=== PATIENT | female | born 1945 | race Caucasian/White ===

== ENCOUNTER 2020-01-14 12:16 | Emergency (ER) | payer BC, MEDICARE, OTHER ==
[~2020-01-14] VITALS: Ht 167.6 cm; Wt 77.3 kg
[~2020-01-14 12:16] MED LIST: ASPI-1265 PO; ATOR40TA PO; CALC-965 PO; GLUC1CAP78 PO; LOSA25TA96 PO; MULT-1073 PO; NAPR220C15 PO; OMEG500C3 PO; OMEP-84 PO
[2020-01-14] MEDS ORDERED: hydrocort. acetate/pramoxine 10gm bottle RC STA ×2 (14:38→14:52)
[2020-01-14] MEDS ORDERED: pramoxine 1% foam spray 15gm TP STA (15:20)
[2020-01-14 15:25] LABS: BASOPHILS # (AUTO) 0.1 X10'3 (0-0.2); BASOPHILS % (AUTO) 0.6 % (0-1); EOSINOPHILS # (AUTO) 0.1 X10'3 (0-0.9); EOSINOPHILS % (AUTO) 1.3 % (0-6); HEMATOCRIT 37.6 % (35.0-45.0); HEMOGLOBIN 12.5 g/dl (12.0-16.0); LYMPHOCYTES # (AUTO) 1.1 X10'3 (1.1-4.8); LYMPHOCYTES % (AUTO) 13.4 % (21-51); MEAN CORPUSCULAR HEMOGLOBIN 32.1 PG (27.0-31.0); MEAN CORPUSCULAR HGB CONC 33.3 g/dL (33.0-36.5); MEAN CORPUSCULAR VOLUME 96.3 FL (78-98); MEAN PLATELET VOLUME 7.3 FL (7.4-10.4); MONOCYTES # (AUTO) 0.7 X10'3 (0-0.9); MONOCYTES % (AUTO) 8.6 % (2-12); NEUTROPHILS # (AUTO) 6.3 X10'3 (1.8-7.7); NEUTROPHILS % (AUTO) 76.1 % (42-75); PLATELET COUNT 249 X10'3 (140-440); RED CELL DISTRIBUTION WIDTH 13.3 % (11.5-14.5); WHITE BLOOD COUNT 8.2 X10'3 (4.5-11.0)
[2020-01-14 15:37] VITALS: BP 154/89
[2020-01-14 15:40] LABS: ALANINE AMINOTRANSFERASE 23 U/L (12-78); ALBUMIN 3.4 G/DL (3.4-5.0); ALBUMIN/GLOBULIN RATIO 0.9 (1.1-1.5); ALKALINE PHOSPHATASE 87 IU/L (46-116); ANION GAP 9 (8-16); ASPARTATE AMINO TRANSFERASE 24 U/L (10-37); BILIRUBIN,TOTAL 0.6 MG/DL (0.1-1.0); BLOOD UREA NITROGEN 12 MG/DL (7-18); BUN/CREATININE RATIO 16.4 (6.6-38.0); CHLORIDE 105 MMOL/L (99-107); CREATININE 0.73 MG/DL (0.40-0.90); GLUCOSE 96 MG/DL (70-104); POTASSIUM 3.8 MMOL/L (3.5-5.1); SODIUM 143 MMOL/L (135-145); TOTAL CARBON DIOXIDE 29.2 MMOL/L (24-32); eGFR 78 ML/MIN
[2020-01-14] MEDS ORDERED: PROCHC RC (16:15)
== END 2020-01-14 16:22 | disposition home or self-care (01) ==
LOC: ER 12:17
DX: K64.9 Unspecified hemorrhoids (principal); K62.5 Hemorrhage of anus and rectum; Z85.9 Personal history of malignant neoplasm, unspecified; Z88.8 Allergy status to other drugs, medicaments and biological substances; Z79.82 Long term (current) use of aspirin; Z79.899 Other long term (current) drug therapy
CPT/HCPCS: 36415; 80053; 85025; 99283

== ENCOUNTER 2020-08-09 12:14 | Emergency (ER) | payer BC ==
[~2020-08-09] VITALS: Ht 167.6 cm; Wt 77.3 kg
[~2020-08-09 12:14] MED LIST changes: +PROCHC RC
--- NOTE | 2020-08-09 13:17 | NUR ---
TO CT VIA W/C
[2020-08-09 14:06] VITALS: BP 155/83
== END 2020-08-09 14:08 | disposition home or self-care (01) ==
LOC: ER 12:15
DX: S02.2XXA Fracture of nasal bones, initial encounter for closed fracture (principal); Z85.3 Personal history of malignant neoplasm of breast; Z79.82 Long term (current) use of aspirin; Z79.899 Other long term (current) drug therapy; W22.8XXA Striking against or struck by other objects, initial encounter; Y93.89 Activity, other specified; Y92.008 Other place in unspecified non-institutional (private) residence as the place of occurrence of the external cause; Y99.8 Other external cause status; Z88.8 Allergy status to other drugs, medicaments and biological substances; Z88.1 Allergy status to other antibiotic agents
CPT/HCPCS: 70450; 70486; 72125; 99285

== ENCOUNTER 2021-08-29 14:21 | Emergency (ER) | payer BC ==
[~2021-08-29] VITALS: Ht 167.6 cm; Wt 77.0 kg
[2021-08-29 14:30] VITALS: BP 187/97
[2021-08-29] MEDS ORDERED: HYDR-3965 PO (16:06)
== END 2021-08-29 16:12 | disposition home or self-care (01) ==
LOC: ER 14:22
DX: M25.552 Pain in left hip (principal); Z85.3 Personal history of malignant neoplasm of breast; Z98.890 Other specified postprocedural states; Z88.1 Allergy status to other antibiotic agents; Z88.8 Allergy status to other drugs, medicaments and biological substances; Z79.82 Long term (current) use of aspirin; Z79.899 Other long term (current) drug therapy
CPT/HCPCS: 99283

== ENCOUNTER 2021-09-15 04:18 | Emergency (ER) | payer BC ==
[~2021-09-15] VITALS: Ht 167.6 cm; Wt 75.0 kg
[~2021-09-15 04:18] MED LIST changes: +HYDR-3965 PO
[2021-09-15] MEDS ORDERED: HYDROcodone/acetaminophen 10/325mg tab PO ONE (04:50)
[2021-09-15 06:04] VITALS: BP 157/97
== END 2021-09-15 06:52 | disposition home or self-care (01) ==
LOC: ER 04:19
DX: M54.32 Sciatica, left side (principal); R53.1 Weakness; M25.552 Pain in left hip; G89.29 Other chronic pain; Z95.0 Presence of cardiac pacemaker; Z98.890 Other specified postprocedural states; Z85.3 Personal history of malignant neoplasm of breast; Z85.038 Personal history of other malignant neoplasm of large intestine; Z88.1 Allergy status to other antibiotic agents; Z88.8 Allergy status to other drugs, medicaments and biological substances; Z79.82 Long term (current) use of aspirin; Z79.899 Other long term (current) drug therapy
CPT/HCPCS: 99284

== ENCOUNTER 2022-08-17 09:09 | Outpatient (CLI) | payer MEDICARE ==
[2022-08-17] VITALS (17 sets, daily range): BP systolic 135–165; BP diastolic 83–119
[~2022-08-17 09:09] MED LIST changes: -HYDR-3965 PO
== END 2022-08-17 23:59 | disposition home or self-care (01) ==
LOC: CARD DIAG 09:09
PROVIDERS: ATTEND Internal Medicine Interventional Cardiology
DX: R55 Syncope and collapse (principal)
CPT/HCPCS: 93660

== ENCOUNTER 2022-09-06 11:30 | Emergency (ER) | payer MEDICARE ==
[~2022-09-06] VITALS: Ht 167.6 cm; Wt 54.5 kg
[2022-09-06 12:01] LABS: HEMOGLOBIN 13.7 g/dl (12.0-16.0); WHITE BLOOD COUNT 8.2 X10'3 (4.5-11.0)
[2022-09-06 12:03] LABS: BASOPHILS # (AUTO) 0.1 X10'3 (0-0.2); BASOPHILS % (AUTO) 0.6 % (0-1); EOSINOPHILS % (AUTO) 0.3 % (0-6); HEMATOCRIT 40.3 % (35.0-45.0); LYMPHOCYTES # (AUTO) 1.5 X10'3 (1.1-4.8); LYMPHOCYTES % (AUTO) 17.8 % (21-51); MEAN CORPUSCULAR HEMOGLOBIN 32.8 PG (27.0-31.0); MEAN CORPUSCULAR HGB CONC 34.1 g/dL (33.0-36.5); MEAN PLATELET VOLUME 7.5 FL (7.4-10.4); MONOCYTES # (AUTO) 0.5 X10'3 (0-0.9); MONOCYTES % (AUTO) 5.9 % (2-12); NEUTROPHILS # (AUTO) 6.2 X10'3 (1.8-7.7); NEUTROPHILS % (AUTO) 75.4 % (42-75); PLATELET COUNT 210 X10'3 (140-440); RED CELL DISTRIBUTION WIDTH 13.8 % (11.5-14.5)
[2022-09-06 12:04] VITALS: BP 162/91
[2022-09-06 12:18] LABS: ALANINE AMINOTRANSFERASE 38 U/L (12-78); ALBUMIN/GLOBULIN RATIO 1.3 (1.1-1.5); ALKALINE PHOSPHATASE 61 IU/L (46-116); ANION GAP 13 (8-16); ASPARTATE AMINO TRANSFERASE 44 U/L (10-37); BILIRUBIN,TOTAL 0.7 MG/DL (0.1-1.0); BLOOD UREA NITROGEN 11 MG/DL (7-18); BUN/CREATININE RATIO 14.7 (6.6-38.0); CALCIUM 9.3 MG/DL (8.5-10.1); CHLORIDE 104 MMOL/L (99-107); CREATININE 0.75 MG/DL (0.40-0.90); GLUCOSE 87 MG/DL (70-104); MAGNESIUM 1.6 MG/DL (1.5-2.4); POTASSIUM 3.5 MMOL/L (3.5-5.1); SODIUM 142 MMOL/L (135-145); TOTAL CARBON DIOXIDE 25.1 MMOL/L (24-32); TOTAL PROTEIN 7.2 G/DL (6.4-8.2); eGFR 75 ML/MIN
[2022-09-06] MEDS ORDERED: amox tr/potassium clavulanate 500mg/125mg TAB PO ONE (19:25)
[2022-09-06] MEDS ORDERED: acetaminophen 325mg tablet PO ONE (19:25)
[2022-09-06] MEDS ORDERED: AMOX-115 PO (19:28)
== END 2022-09-06 20:26 | disposition home or self-care (01) ==
LOC: ER 11:31
DX: S01.21XA Laceration without foreign body of nose, initial encounter (principal); G89.29 Other chronic pain; F31.9 Bipolar disorder, unspecified; Z88.8 Allergy status to other drugs, medicaments and biological substances; Z88.5 Allergy status to narcotic agent; Z79.899 Other long term (current) drug therapy; Z79.1 Long term (current) use of non-steroidal anti-inflammatories (NSAID); Z79.2 Long term (current) use of antibiotics; W18.39XA Other fall on same level, initial encounter; Y93.89 Activity, other specified; Y92.89 Other specified places as the place of occurrence of the external cause; Y99.8 Other external cause status
CPT/HCPCS: 12011; 36415; 80053; 83735; 83880; 84484; 85025; 93005; 99284

== ENCOUNTER 2023-01-17 16:13 | Emergency (ER) | payer MEDICARE ==
[~2023-01-17] VITALS: Ht 167.6 cm; Wt 71.8 kg
[2023-01-17 17:27] VITALS: BP 142/79
[2023-01-17] MEDS ORDERED: hydrocort. acetate/pramoxine 10gm bottle RC ONE (18:30)
--- NOTE | 2023-01-17 19:08 | NUR ---
PROCTOFOAM APPLIED TO ANUS
--- NOTE | 2023-01-17 20:26 | NUR ---
PT HAD 2LG BM'S POST ENEMA
== END 2023-01-17 21:01 | disposition home or self-care (01) ==
LOC: ER 16:13
DX: K59.00 Constipation, unspecified (principal); Z88.8 Allergy status to other drugs, medicaments and biological substances; Z87.891 Personal history of nicotine dependence
CPT/HCPCS: 99284

== ENCOUNTER 2024-07-01 08:20 | Emergency (ER) | payer MEDICARE ==
[~2024-07-01] VITALS: Ht 167.6 cm; Wt 65.9 kg
[~2024-07-01 08:20] MED LIST changes: +LOSA-415 PO; -LOSA25TA96 PO
[2024-07-01] MEDS ORDERED: LAMO100T PO (08:41)
[2024-07-01] MEDS ORDERED: METO-395 PO (08:41)
[2024-07-01] MEDS: HYDROcodone/acetaminophen 5mg/325mg tablet PO ONE (10:06)
[2024-07-01] MEDS ORDERED: HYDR-3965 PO (12:26)
[2024-07-01] MEDS ORDERED: CYCL-920 PO (12:26)
[2024-07-01 12:43] VITALS: BP 116/79; PULSE 69; RESP 16; TEMP 98; O2SAT 97
== END 2024-07-01 12:46 | disposition home or self-care (01) ==
LOC: ER 08:20
DX: S33.5XXA Sprain of ligaments of lumbar spine, initial encounter (principal); G89.29 Other chronic pain; M54.2 Cervicalgia; M25.511 Pain in right shoulder; M25.512 Pain in left shoulder; I48.91 Unspecified atrial fibrillation; F32.A Depression, unspecified; F41.9 Anxiety disorder, unspecified; Z85.038 Personal history of other malignant neoplasm of large intestine; Z85.3 Personal history of malignant neoplasm of breast; Z95.0 Presence of cardiac pacemaker; Z98.890 Other specified postprocedural states; X58.XXXA Exposure to other specified factors, initial encounter; Y93.89 Activity, other specified; Y92.89 Other specified places as the place of occurrence of the external cause; Y99.8 Other external cause status
CPT/HCPCS: 72125; 99284

== ENCOUNTER 2024-07-07 10:36 | Emergency (ER) | payer MEDICARE ==
[~2024-07-07] VITALS: Ht 167.6 cm; Wt 61.4 kg
[~2024-07-07 10:36] MED LIST changes: -ASPI-1265 PO; +CYCL-920 PO; +HYDR-3965 PO; +LAMO100T PO; +METO-395 PO; -NAPR220C15 PO; -PROCHC RC
[2024-07-07 10:46] VITALS: TEMP 97.8
[2024-07-07 12:33] LABS: BILIRUBIN,URINE SMALL (Neg); CLARITY,URINE TURBID (Clear); GLUCOSE, URINE NEGATIVE (Neg); KETONES,URINE 15 mg/dl (Neg); LEUKOCYTE ESTERASE ,URINE MODERATE (Neg); NITRITES, URINE NEGATIVE (Neg); OCCULT BLOOD,URINE MODERATE (Neg); PH,URINE 5.5 (4.8-8.0); PROTEIN,URINE 30 mg/dl (Neg)
[2024-07-07 12:35] LABS: COLOR,URINE DARK YELLOW (Yellow); UA COLLECTION TYPE NON-SPECIFIED
[2024-07-07 12:38] LABS: BACTERIA,URINE 1+ /HPF (Neg); HYALINE CASTS 0-3 /LPF (NEGATIVE); MUCUS STRANDS NONE SEEN /LPF (Neg); SQUAMOUS EPITHELIAL CELL,UR MODERATE /LPF (FEW); WBC CLUMPS,URINE MANY /HPF (NEGATIVE); WBC,URINE TNTC /HPF (0-4)
[2024-07-07] MEDS: CefTRIAXone 1000mg IM Kit (w/lidocaine diluent) IM ONE (14:15)
[2024-07-07 14:18] VITALS: BP 108/68; PULSE 69; RESP 16; O2SAT 97
== END 2024-07-07 14:49 | disposition home or self-care (01) ==
LOC: ER 10:37
DX: N39.0 Urinary tract infection, site not specified (principal); F41.9 Anxiety disorder, unspecified; F32.A Depression, unspecified; I48.91 Unspecified atrial fibrillation; F03.90 Unspecified dementia, unspecified severity, without behavioral disturbance, psychotic disturbance, mood disturbance, and anxiety; Z85.3 Personal history of malignant neoplasm of breast; Z85.038 Personal history of other malignant neoplasm of large intestine; Z95.0 Presence of cardiac pacemaker; Z98.890 Other specified postprocedural states
CPT/HCPCS: 81001; 87088; 96372; 99283; J0696

== ENCOUNTER 2024-09-18 13:45 | Emergency (ER) | payer MEDICARE ==
[~2024-09-18] VITALS: Ht 162.6 cm; Wt 64.6 kg
[~2024-09-18 13:45] MED LIST changes: -HYDR-3965 PO
[2024-09-18 14:02] VITALS: TEMP 98
[2024-09-18 15:17] LABS: BILIRUBIN,URINE NEGATIVE (Neg); CLARITY,URINE SLIGHTLY CLOUDY (Clear); COLOR,URINE YELLOW (Yellow); GLUCOSE, URINE NEGATIVE (Neg); KETONES,URINE TRACE mg/dl (Neg); LEUKOCYTE ESTERASE ,URINE NEGATIVE (Neg); NITRITES, URINE NEGATIVE (Neg); OCCULT BLOOD,URINE TRACE-INTACT (Neg); PROTEIN,URINE NEGATIVE (Neg)
[2024-09-18 15:28] LABS: BASOPHILS # (AUTO) 0.1 X10'3 (0-0.2); BASOPHILS % (AUTO) 0.8 % (0-1); EOSINOPHILS # (AUTO) 0.1 X10'3 (0-0.9); HEMATOCRIT 31.6 % (35.0-45.0); HEMOGLOBIN 10.1 g/dl (12.0-16.0); LYMPHOCYTES # (AUTO) 1.2 X10'3 (1.1-4.8); MEAN CORPUSCULAR HEMOGLOBIN 27.1 PG (27.0-31.0); MEAN CORPUSCULAR VOLUME 84.6 FL (78-98); MEAN PLATELET VOLUME 6.3 FL (7.4-10.4); MONOCYTES # (AUTO) 0.6 X10'3 (0-0.9); MONOCYTES % (AUTO) 8.1 % (2-12); NEUTROPHILS # (AUTO) 5.1 X10'3 (1.8-7.7); NEUTROPHILS % (AUTO) 73.1 % (42-75); PLATELET COUNT 473 X10'3 (140-440); RED BLOOD COUNT 3.73 X10'6 (4.20-5.60); RED CELL DISTRIBUTION WIDTH 18.3 % (11.5-14.5)
[2024-09-18 15:39] LABS: ALANINE AMINOTRANSFERASE 12 U/L (12-78); ALBUMIN 2.9 G/DL (3.4-5.0); ALBUMIN/GLOBULIN RATIO 0.7 (1.1-1.5); ALKALINE PHOSPHATASE 104 IU/L (46-116); ANION GAP 7 (8-16); ASPARTATE AMINO TRANSFERASE 15 U/L (10-37); BILIRUBIN,TOTAL 0.4 MG/DL (0.1-1.0); BLOOD UREA NITROGEN 10 MG/DL (7-18); BUN/CREATININE RATIO 15.6 (10.0-20.0); C-REACTIVE PROTEIN 5.73 MG/DL (0.0-0.5); CALCIUM 8.9 MG/DL (8.5-10.1); CHLORIDE 105 MMOL/L (99-107); CREATININE 0.64 MG/DL (0.40-0.90); GLUCOSE 113 MG/DL (70-104); POTASSIUM 3.6 MMOL/L (3.5-5.1); SODIUM 143 MMOL/L (135-145); TOTAL CARBON DIOXIDE 30.6 MMOL/L (24-32); TOTAL PROTEIN 7.2 G/DL (6.4-8.2); eCRCL 64 ML/MIN; eGFR 90 ML/MIN
[2024-09-18 15:47] LABS: UA COLLECTION TYPE CLN CATCH MIDSTREAM
[2024-09-18 15:48] LABS: WBC,URINE 0-4 /HPF (0-4)
[2024-09-18 15:49] LABS: BACTERIA,URINE FEW /HPF (Neg); MUCUS STRANDS FEW /LPF (Neg); SQUAMOUS EPITHELIAL CELL,UR MANY /LPF (FEW); TRANSITIONAL EPI CELLS,URINE FEW /HPF
[2024-09-18] MEDS ORDERED: GABA300C PO (16:35)
[2024-09-18 16:38] VITALS: BP 151/72; PULSE 79; RESP 16; O2SAT 98
== END 2024-09-18 16:41 | disposition home or self-care (01) ==
LOC: ER 13:45
DX: M79.18 Myalgia, other site (principal); I48.91 Unspecified atrial fibrillation; Z85.038 Personal history of other malignant neoplasm of large intestine; Z85.3 Personal history of malignant neoplasm of breast; Z95.0 Presence of cardiac pacemaker; Z98.890 Other specified postprocedural states
CPT/HCPCS: 36415; 80053; 81001; 85025; 85651; 86140; 99283; 99284